=== PATIENT | female | born 1980 | race Caucasian/White ===

== ENCOUNTER 2019-11-06 23:05 | Emergency (ER) | payer OTHER, MEDICAID, SELFPAY ==
[2019-11-06 23:18] VITALS: BP 166/64; PULSE 52; RESP 14; TEMP 37.4; O2SAT 99; BMI 28.3
--- NOTE | 2019-11-06 23:41 | ED_ITS ---
HPI - General Adult General Chief complaint: Toxicology Problem Stated complaint: HEROIN WITHDRAWALS Time Seen by Provider: 11/06/19 23:16 Source: patient and family Mode of arrival: Wheelchair Limitations: no limitations History of Present Illness HPI narrative: Patient is a 39-year-old female. Unknown abuser of heroin. States her last use of heroin was 2 days ago. She is here with her . She states she is here for detox. She states that 2 days ago she decided that she wants a ?change of life ?and stopped using heroin. She states that prior to coming here they went to another emergency department however the wait was too long. They state that they contacted a detox facility who told them that they needed to come to the emergency department. Patient has multiple complaints to include pain, headache, nausea. Review of Systems Constitutional Constitutional: Reports fatigue, Reports headache(s) and Reports poor appetite ENT Ears, Nose, Mouth, and Throat: Denies dizziness, Reports headache(s) and Reports disequilibrium Cardiovascular Cardiovascular: Denies chest pain and Denies dyspnea Respiratory Respiratory: Denies dyspnea Gastrointestinal Gastrointestinal: Reports abdominal pain, Denies change in stool character and Reports nausea Musculoskeletal Musculoskeletal: Reports myalgias Integumentary/Breasts Skin/Breast: Denies lesions and Denies rash Neurologic Neurologic: Denies dizziness, Reports headache(s), Denies focal weakness and Reports disequilibrium Psychiatric Psychiatric: Reports anxiety and Reports difficulty concentrating Endocrine Endocrine: Reports fatigue Hematologic/Lymphatic Hematologic/Lymphatic: Denies easy bleeding and Denies easy bruising Allergic/Immunologic Allergic/Immunologic: Denies urticaria Patient History Medical History Heroin abuse (Acute) Social History Smoking Status: Current every day smoker Smoking Status: Current every day smoker alcohol intake frequency: 0-2 drinks per day Substance Use Type: heroin Exam Initial Vital Signs Initial Vital Signs: Vital Signs Temperature 99.4 F 11/06/19 23:18 Pulse Rate 52 L 11/06/19 23:18 Respiratory Rate 14 11/06/19 23:18 Blood Pressure 166/64 H 11/06/19 23:18 Pulse Oximetry 99 11/06/19 23:18 Const General: No acute distress and No ill appearing Orientation: alert, awake and oriented x3 HENMT Head: normal to inspection and normocephalic Resp Effort & Inspection: normal respiratory effort Cardio Rate: regular rate Skin Lesions: no lesions Rashes: no rashes Neuro General: alert, awake and oriented x3 Speech: speech normal Extrem General: capillary refill normal Psych Appearance: grossly normal Speech and Movement: agitated and restless Mood: angry Affect: irritable affect Attitude: other (Somewhat cooperative) Thought Content: suicidality Course Orders Ordered: ED Orders 11/06/19 23:30 Acetaminophen Stat Basic Metabolic Panel Stat Complete Blood Count AUTO DIFF Stat Ethanol (ETOH) Stat Salicylate Stat 11/07/19 01:05 Urine Drug Screen, Rapid Stat Discontinued Medications Clonidine HCl (Catapres-Tts 1) 0.1 mg TOP NOW ONE Stop: 11/06/19 23:42 Last Admin: 11/07/19 00:26 Dose: 0.1 mg Documented by: ADOLPH Ondansetron HCl (Zofran Odt) 4 mg SL NOW ONE Stop: 11/06/19 23:42 Last Admin: 11/06/19 23:58 Dose: 4 mg Documented by: ADOLPH Vital Signs Vital signs: Vital Signs - 8 hr 11/06/19 23:18 11/07/19 00:03 11/07/19 01:52 Temperature 99.4 F Pulse Rate 52 L 58 L 66 Respiratory Rate 14 36 H 28 H Blood Pressure 166/64 H Blood Pressure [Left Arm] 166/91 H 155/86 H Pulse Oximetry 99 99 98 11/07/19 02:00 Temperature Pulse Rate 66 Respiratory Rate 30 H Blood Pressure Blood Pressure [Left Arm] 154/88 H Pulse Oximetry 98 Medical Decision Making Lab Data Lab results reviewed: Yes I reviewed the patient's lab results. Result diagrams: 11/06/19 23:30 11/06/19 23:30 Labs: Lab Results 11/06/19 11/06/19 11/06/19 Range/Units 23:30 23:30 23:30 WBC 9.3 (4.5-11.0) X10^3/uL RBC 5.07 (4.0-5.2) X10^6/uL Hgb 14.6 (12.0-16.0) g/dL Hct 41.8 (36-46) % MCV 82.4 (80-100) fL MCH 28.7 (26-34) PG MCHC 34.9 (30-36) % RDW 13.9 (11.6-14.8) % Plt Count 247 (150-400) X10^3/uL Neut % (Auto) Not Reportable Lymph % (Auto) Not Reportable [place] % (Auto) Not Reportable Eos % (Auto) Not Reportable Baso % (Auto) Not Reportable Lymph # (Auto) Not Reportable [place] # (Auto) Not Reportable Baso # (Auto) Not Reportable Total Counted 100 Seg Neutrophils % 81.0 H (38-70) % Lymphocytes % (Manual) 16.0 L (25-45) % Monocytes % (Manual) 3.0 (2-11) % Neutrophils # (Manual) 7533 H (6002-5123) /uL RBC Morphology Normal morphology Sodium 141 (137-145) mmol/L Potassium 3.7 (3.4-5.1) mmol/L Chloride 109 H (98-107) mmol/L Carbon Dioxide 26 (22-32) mmol/L BUN 11 (7-17) mg/dL Creatinine 0.70 (0.52-1.04) mg/dL Estimated GFR > 60.0 (>60) mL/min BUN/Creatinine Ratio 15.7 (6-22) Glucose 102 H (70-100) mg/dL Calcium 9.0 (8.4-10.2) mg/dL Salicylates < 1.0 (<20) mg/dL U Morph 300 ng/mL cutoff (Negative) Ur Oxycodone Screen (Negative) Urine Methadone Screen (Negative) Acetaminophen < 10 L (10-30) ug/mL Ur Barbiturates Screen (Negative) U Tricyclic Antidepress (Negative) Ur Phencyclidine Scrn (Negative) Ur Amphetamines Screen (Negative) U Methamphetamines Scrn (Negative) Ur MDMA Scrn (Ecstasy) (Negative) U Benzodiazepines Scrn (Negative) Urine Cocaine Screen (Negative) U Marijuana (THC) Screen (Negative) Ethyl Alcohol < 10 ( - 10) mg/dL 11/07/19 Range/Units 01:05 WBC (4.5-11.0) X10^3/uL RBC (4.0-5.2) X10^6/uL Hgb (12.0-16.0) g/dL Hct (36-46) % MCV (80-100) fL MCH (26-34) PG MCHC (30-36) % RDW (11.6-14.8) % Plt Count (150-400) X10^3/uL Neut % (Auto) Lymph % (Auto) [place] % (Auto) Eos % (Auto) Baso % (Auto) Lymph # (Auto) [place] # (Auto) Baso # (Auto) Total Counted Seg Neutrophils % (38-70) % Lymphocytes % (Manual) (25-45) % Monocytes % (Manual) (2-11) % Neutrophils # (Manual) (9360-7784) /uL RBC Morphology Sodium (137-145) mmol/L Potassium (3.4-5.1) mmol/L Chloride (98-107) mmol/L Carbon Dioxide (22-32) mmol/L BUN (7-17) mg/dL Creatinine (0.52-1.04) mg/dL Estimated GFR (>60) mL/min BUN/Creatinine Ratio (6-22) Glucose (70-100) mg/dL Calcium (8.4-10.2) mg/dL Salicylates (<20) mg/dL U Morph 300 ng/mL cutoff Positive H (Negative) Ur Oxycodone Screen Positive H (Negative) Urine Methadone Screen Negative (Negative) Acetaminophen (10-30) ug/mL Ur Barbiturates Screen Negative (Negative) U Tricyclic Antidepress Negative (Negative) Ur Phencyclidine Scrn Negative (Negative) Ur Amphetamines Screen Negative (Negative) U Methamphetamines Scrn Positive H (Negative) Ur MDMA Scrn (Ecstasy) Negative (Negative) U Benzodiazepines Scrn Positive H (Negative) Urine Cocaine Screen Negative (Negative) U Marijuana (THC) Screen Positive H (Negative) Ethyl Alcohol ( - 10) mg/dL Point of Care Testing Test Results Negative Urine Dip Bedside Urine Glucose Negative Bedside Urine Bilirubin - Negative Bedside Urine Ketone + 15 Urine Specific [place] 1.020 Bedside Urine Occult Blood - Negative Bedside Urine pH 6.0 Bedside Urine Protein + 30 Bedside Urine Urobilinogen +/- 1mg Bedside Urine Nitrite - Negative Bedside Urine Leukocytes + 70 Esterase Point of care testing: Point of Care Testing Test Results Negative Urine Dip Bedside Urine Glucose Negative Bedside Urine Bilirubin - Negative Bedside Urine Ketone + 15 Urine Specific [place] 1.020 Bedside Urine Occult Blood - Negative Bedside Urine pH 6.0 Bedside Urine Protein + 30 Bedside Urine Urobilinogen +/- 1mg Bedside Urine Nitrite - Negative Bedside Urine Leukocytes + 70 Esterase MDM Narrative Medical decision making narrative: Patient was given Zofran and clonidine to help with her withdrawal symptoms. UDS positive for multiple substances. Patient is medically cleared. She is alert and oriented however somewhat agitated. Patient is stable for transport to detox facility when a bed is found. We contacted the [facility]. They stated because of her prescription medication that she needed to be accepted by either the physician or the nurse that will be on in the morning. They stated that they did have beds. We did discuss this with the patient. She asked for sleeping medication. I felt that given her current situation and her UDS that adding medications on top of this would be unwise. Patient stated that she would like to go home. Her was at bedside. I feel that she does have the capacity to make decisions. She was given information packets for multiple crisis and drug centers here in the area. We did clarify and told the patient that if in the morning the patient would like to call the [facility] directly to be admitted there that she is able to do this. She expressed understanding of this. She was instructed to remove the clonidine patch in 7 days. Discharge Plan Departure Patient Disposition: Home Clinical Impression: Opioid withdrawal Instructions: Opioid Use Disorder (Alternative Therapy) Activity Restrictions/Additional Instructions: I recommend that in the morning you contact the crisis center or 1 of the other centers that you were given information for this evening. Feel free to return to the emergency department at any point for new or worsening symptoms.
[2019-11-06 23:44] LABS: Add Manual Diff / Slide Review YES; Hematocrit 41.8 % (36-46); Hemoglobin 14.6 g/dL (12.0-16.0); Mean Corpuscular HGB Conc 34.9 % (30-36); Mean Corpuscular Hemoglobin 28.7 PG (26-34); Mean Corpuscular Volume 82.4 fL (80-100); Platelet Count 247 X10^3/uL (150-400); Red Blood Cell Count 5.07 X10^6/uL (4.0-5.2); Red Cell Distribution Width 13.9 % (11.6-14.8); White Blood Cell Count 9.3 X10^3/uL (4.5-11.0)
[2019-11-06 23:48] LABS: Salicylate < 1.0 mg/dL (<20)
[2019-11-06 23:49] LABS: Acetaminophen < 10 ug/mL (10-30); BUN Creatinine Ratio 15.7 (6-22); Blood Urea Nitrogen 11 mg/dL (7-17); Carbon Dioxide 26 mmol/L (22-32); Chloride 109 mmol/L (98-107); Estimated Glomerular Filt Rate > 60.0 mL/min (>60); Ethanol (ETOH) < 10 mg/dL; Glucose 102 mg/dL (70-100); HEMOLYSIS < 15 (0-50); Potassium 3.7 mmol/L (3.4-5.1); Sodium 141 mmol/L (137-145)
[2019-11-06] MEDS: ONDANSETRON 4 MG ODT SL (23:58)
[2019-11-07 00:03] VITALS: BP 166/91; PULSE 58; RESP 36; O2SAT 99
[2019-11-07] MEDS: cloNIDine TTS 0.1 MG PATCH TOP (00:26)
[2019-11-07 00:35] LABS: Neutrophils Absolute Manual 7533 /uL (3000-5900); Total Cells Counted 100
[2019-11-07 00:36] LABS: RBC Morphology Normal Morphology
[2019-11-07 01:16] LABS: UR Morphine/Opiate cutoff 300 Positive (Negative); Ur Creatinine 50 (Normal); Ur Specific Gravity 1.025 (Normal); Urine Amphetamines Negative (Negative); Urine Cocaine Negative (Negative); Urine Methamphetamines Positive (Negative); Urine Tetrahydrocannabinol Positive (Negative); Urine pH 5 (Normal)
[2019-11-07 01:17] LABS: Urine Barbiturates Negative (Negative); Urine Benzodiazepines Positive (Negative); Urine MDMA Negative (Negative); Urine Methadone Negative (Negative); Urine Oxycodone Positive (Negative); Urine Phencyclidine Negative (Negative); Urine Tricyclic Antidepressant Negative (Negative)
[2019-11-07 01:52] VITALS: BP 155/86; PULSE 66; RESP 28; O2SAT 98
[2019-11-07 02:00] VITALS: BP 154/88; PULSE 66; RESP 30; O2SAT 98
--- NOTE | 2019-11-07 02:31 | PC.NURSE ---
patient talking on the phone with [facility]. provider aware.
--- NOTE | 2019-11-07 03:20 | PC.NURSE ---
Patient spoke with [facility] ([facility]) and [facility] states that they have to do another intake process in the morning around 06:30 involving a nurse and clinician due to some of the medications that the patient takes. Patient agitated and wants to go home and call the [facility] in the morning. I called the [facility] and was told that the patient could go home and call in the morning when she is ready. Provider aware and no new orders at this time.
== END 2019-11-07 03:24 | disposition home or self-care (01) ==
PROVIDERS: Emergency Provider Emergency Medicine
DX: F11.23 Opioid dependence with withdrawal (principal)
CPT/HCPCS: 36415; 80048; 80305; 80320; 80329; 81003; 81025; 85025; 99282; 99283; G0480

== ENCOUNTER → 2020-07-02 08:51 | Outpatient (CLI) | payer OTHER, MEDICAID, SELFPAY ==
--- NOTE | 2020-07-02 | DI.RAD.S_ITS ---
PROCEDURE: XR FOOT RT MIN 3V INDICATIONS: Pain in unspecified joint TECHNIQUE: 3 views of the foot were acquired. COMPARISON: None. FINDINGS: Bones: No fractures or dislocations. No suspicious bony lesions. Mild posterior calcaneal spur. Soft tissues: No tibiotalar joint effusion. Achilles tendon appears normal. IMPRESSION: Minimal spurring at the posterior calcaneus. Otherwise, unremarkable examination as above. If the patient's pain or other symptoms persist, consider further evaluation with MRI Dictated by: Sarkis Peraza M.D. on 07/02/2020 at 10:58 Approved by: Sarkis Peraza M.D. on 07/02/2020 at 10:59
--- NOTE | 2020-07-02 | DI.RAD.S_ITS ---
PROCEDURE: XR FOOT LT MIN 3V INDICATIONS: Pain in unspecified joint TECHNIQUE: 3 views of the foot were acquired. COMPARISON: [facility], CR, XR FOOT RT MIN 3V, 07/02/2020, 8:03. FINDINGS: Bones: No fractures or dislocations. No suspicious bony lesions. Hindfoot and midfoot degenerative spurring. Prominent posterior calcaneal spur. Soft tissues: No tibiotalar joint effusion. Achilles tendon appears normal. IMPRESSION: Posterior calcaneal spur Dictated by: Sarkis Peraza M.D. on 07/02/2020 at 11:00 Approved by: Sarkis Peraza M.D. on 07/02/2020 at 11:02
--- NOTE | 2020-07-02 | DI.MRI.S_ITS ---
PROCEDURE: MR HUMERUS RT WO CON INDICATIONS: Pain in right upper arm TECHNIQUE: Noncontrast coronal and sagittal T1 spin echo and STIR; axial T1 spin echo and T2 fast spin echo with fat saturation through the right humerus . COMPARISON: None. FINDINGS: Image quality: Motion degraded examination. Bones: The visualized bone marrow demonstrates normal signal on all sequences. The overlying cortex appears intact. No fractures lines or intra-osseous lesions. Soft tissues: There is probable rotator cuff pathology however limited evaluation given exam protocol tailored for right humerus. Possible ganglion cyst seen in the region of the supraspinatus muscle image 26/6 measuring 1 cm. No soft tissue masses are present. IMPRESSION: No suspicious humeral marrow signal abnormalities. No fracture. There is right chest /abdominal wall subcutaneous edema , presumed contusion although nonspecific. Severely suboptimal evaluation due to motion artifact, and modality. If there is clinical suspicion for rib fracture consider dedicated rib series. Probable rotator cuff pathology as detailed above, however incomplete evaluation given exam protocol tailored for humerus. If there is sufficient clinical concern, dedicated shoulder MRI could be performed. Dictated by: Sarkis Peraza M.D. on 07/02/2020 at 11:08 Approved by: Sarkis Peraza M.D. on 07/02/2020 at 11:19
--- NOTE | 2020-07-02 | DI.RAD.S_ITS ---
PROCEDURE: XR HIP W PEL IF DONE LT MIN 4V INDICATIONS: Pain in unspecified joint TECHNIQUE: AP pelvis with lateral view(s) of the left and right hip(s). COMPARISON: None. FINDINGS: Bones: No fracture. Mild bilateral hip joint degeneration. Lower lumbar spondylosis and facet arthropathy. Soft tissues: The visualized bowel gas pattern is normal. No suspicious soft tissue calcifications. IMPRESSION: Mild bilateral hip joint degeneration. Lower lumbar spondylosis Dictated by: Sarkis Peraza M.D. on 07/02/2020 at 14:10 Approved by: Sarkis Peraza M.D. on 07/02/2020 at 14:11
--- NOTE | 2020-07-02 | DI.RAD.S_ITS ---
PROCEDURE: XR HAND LT MIN 3V INDICATIONS: Pain in unspecified joint TECHNIQUE: 3 views of the hand(s) acquired. COMPARISON: None. FINDINGS: Bones: No fractures or dislocations. Carpal bones are normally aligned. No suspicious bony lesions. Ulnar minus variance Soft tissues: No suspicious soft tissue calcifications. IMPRESSION: Ulnar minus variance Otherwise, unremarkable examination. If the patient's pain or other symptoms persist, consider further evaluation with MRI Dictated by: Sarkis Peraza M.D. on 07/02/2020 at 11:05 Approved by: Sarkis Peraza M.D. on 07/02/2020 at 11:06
--- NOTE | 2020-07-02 | DI.RAD.S_ITS ---
PROCEDURE: XR HAND RT MIN 3V INDICATIONS: Pain in unspecified joint TECHNIQUE: 3 views of the hand(s) acquired. COMPARISON: [facility], CR, XR HAND LT MIN 3V, 07/02/2020, 8:00. FINDINGS: Bones: No fracture. Ulnar minus variance and distal radial ulnar joint degeneration, suggestive of ulnar impingement syndrome. Soft tissues: No suspicious soft tissue calcifications. IMPRESSION: Degenerative changes at the distal radioulnar joint, and ulnar minus variance. Findings raise the possibility of ulnar impingement syndrome. Dictated by: Sarkis Peraza M.D. on 07/02/2020 at 11:06 Approved by: Sarkis Peraza M.D. on 07/02/2020 at 11:08
== END ==
PROVIDERS: PCP Family Medicine; Referring Provider Family Medicine; Visit Provider Family Medicine
DX: M79.621 Pain in right upper arm (principal); M16.0 Bilateral primary osteoarthritis of hip; M47.816 Spondylosis without myelopathy or radiculopathy, lumbar region; M25.50 Pain in unspecified joint; M77.32 Calcaneal spur, left foot; M77.31 Calcaneal spur, right foot; M21.832 Other specified acquired deformities of left forearm; M21.831 Other specified acquired deformities of right forearm; M19.041 Primary osteoarthritis, right hand
CPT/HCPCS: 73130; 73218; 73522; 73630

== ENCOUNTER → 2020-08-22 16:00 | Outpatient (CLI) | payer OTHER, MEDICAID, SELFPAY ==
--- NOTE | 2020-08-22 16:02 | DI.MRI.S_ITS ---
PROCEDURE: MR SHOULDER RT WO CON INDICATIONS: Right shoulder pain TECHNIQUE: Noncontrast oblique coronal T2 fast spin echo with fat saturation, oblique sagittal T1 spin echo and T2 fast spin echo with fat saturation, axial T1 spin echo and T2 fast spin echo with fat saturation through the shoulder. COMPARISON: None. FINDINGS: Image quality: There is mild motion artifact. Rotator cuff: There is tendinopathy of the superior cuff with moderate intrasubstance partial tearing at the insertion of the supraspinatus involving the posterior fibers as well as anterior fibers of the infraspinatus. No discrete full-thickness tear or tendon retraction. The subscapularis demonstrates mild tendinopathy with minimal partial tearing at its insertion. The teres minor appears intact. Sagittal images demonstrate no fatty muscle atrophy. Bones and bursae: There is mild bone marrow edema within the humeral head adjacent to the insertion of the superior cuff which may represent reactive changes or enthesitis. No definite bone marrow contusions or fractures. There is moderate acromioclavicular joint degeneration. The acromion demonstrates conventional anatomy, without an os acromiale. A small amount of subacromial-subdeltoid bursal fluid is present. Capsule and soft tissues: There is degenerative signal within the superior and posterosuperior labrum as well as the anteroinferior labrum. In the absence of intra-articular contrast, the glenohumeral ligaments appear intact. The long head of the biceps tendon demonstrates normal location and morphology. The rotator interval appears normal, without fibrosis. The coracohumeral ligament is normal in thickness. IMPRESSION: 1. Moderate interstitial partial tearing in the superior cuff at its insertion. No discrete full-thickness tear or tendon retraction. 2. Moderate acromioclavicular joint degeneration with mild subacromial/subdeltoid bursitis. 3. Mild bone marrow edema in the humeral head along the insertion of the superior cuff may represent reactive changes or an enthesitis. No discrete bony erosions. Dictated by: Erasto Schneider M.D. on 08/22/2020 at 18:19 Approved by: Erasto Schneider M.D. on 08/22/2020 at 18:25
--- NOTE | 2020-08-22 16:02 | DI.MRI.S_ITS ---
PROCEDURE: MR KNEE RT WO CON INDICATIONS: Right knee pain TECHNIQUE: Noncontrast sagittal PD fast spin echo and T2 fast spin echo with fat saturation, sagittal 3-D FLASH with fat saturation; coronal T1 spin echo and PD fast spin echo with fat saturation, and axial PD fast spin echo with fat saturation through the knee. COMPARISON: [facility], CR, XR KNEE ARTHRITIC SERIES BI, 06/03/2017, 16:02. FINDINGS: Image quality: Diagnostic. Menisci: There is moderate degenerative tearing of the lateral meniscus. This extends to the meniscal root ligaments without evidence of rupture. There is mild lateral extrusion. The medial meniscus is diminutive in size suggesting sequelae of prior partial meniscectomy. There is mild degenerative tearing of the remnant medial meniscus. Cruciate ligaments: The anterior cruciate ligament is attenuated in appearance consistent with sequelae of a prior moderate sprain. The posterior cruciate ligament is intact. Medial structures: The medial collateral ligament appears intact. The semimembranosus tendon insertions and meniscocapsular junction appear intact. Visualized portions of the pes anserinus tendons appear intact without associated bursal fluid collections. Lateral structures: The lateral collateral ligament, long and short heads of the biceps femoris tendon appear intact. The popliteus tendon appears intact. Iliotibial band appears intact. Anterior structures: The quadriceps and patellar tendons appear intact. There is mild lateral shift of the patella. No femoral trochlear dysplasia or ventral trochlear prominence. No edema in the infrapatellar fat pad. Bones and cartilage: No bone marrow contusions or fractures. No discrete bony erosions. There is tricompartmental osteophytosis. Moderate cartilage thinning is demonstrated in the patellofemoral compartment with superficial chondral fissuring. In the medial compartment, there is moderate cartilage thinning with chondral fissuring associated with mild subchondral edema. In the lateral compartment, there is moderate to severe cartilage thinning with chondral fissuring and subchondral edema. Joint space: There is a large joint effusion. No Reeder's cyst. Normal appearing synovial plicae are incidentally noted. IMPRESSION: 1. Large nonspecific joint effusion. No discrete bony erosions or bony destruction to suggest osteomyelitis or inflammatory arthropathy. Correlation is recommended clinically. 2. Tricompartmental moderate to severe osteoarthritic changes. 3. Moderate degenerative tearing of the lateral meniscus. 4. Diminutive appearance of the medial meniscus suggestive of a prior partial meniscectomy. There is mild degenerative tearing of the remnant meniscus. 5. Attenuated appearance of the ACL suggestive of prior moderate sprain. Dictated by: Erasto Schneider M.D. on 08/22/2020 at 18:04 Approved by: Erasto Schneider M.D. on 08/22/2020 at 18:18
== END ==
PROVIDERS: PCP Family Medicine; Referring Provider Family Medicine; Visit Provider Licensed Practical Nurse
DX: M25.561 Pain in right knee (principal); M25.511 Pain in right shoulder; M23.200 Derangement of unspecified lateral meniscus due to old tear or injury, right knee; M23.203 Derangement of unspecified medial meniscus due to old tear or injury, right knee; M17.11 Unilateral primary osteoarthritis, right knee; M25.461 Effusion, right knee; M75.111 Incomplete rotator cuff tear or rupture of right shoulder, not specified as traumatic; M19.011 Primary osteoarthritis, right shoulder
CPT/HCPCS: 73221; 73721

== ENCOUNTER → 2020-09-13 14:51 | Outpatient (CLI) | payer OTHER, MEDICAID, SELFPAY ==
--- NOTE | 2020-09-13 | DI.US.S_ITS ---
PROCEDURE: US PERIPH VENOUS LOW EXTREM BI INDICATIONS: EDEMA TECHNIQUE: Real-time imaging, as well as color and pulse Doppler interrogation, were performed of the deep veins of both legs from the inguinal ligament to the popliteal fossa. COMPARISON: None. FINDINGS: Right: The common femoral, femoral and popliteal veins are normally compressible, and free of intraluminal thrombus. Color and pulse Doppler demonstrate normal phasic intravascular flow. There is normal augmentation response to distal compression maneuver. Left: The common femoral, femoral and popliteal veins are normally compressible, and free of intraluminal thrombus. Color and pulse Doppler demonstrate normal phasic intravascular flow. There is normal augmentation response to distal compression maneuver. IMPRESSION: Negative for deep venous thrombosis. Dictated by: Juan José Pantoja M.D. on 09/13/2020 at 14:40 Approved by: Juan José Pantoja M.D. on 09/13/2020 at 14:40
== END ==
PROVIDERS: PCP Family Medicine; Referring Provider Orthopaedic Surgery; Visit Provider Family Medicine
DX: R60.9 Edema, unspecified (principal)
CPT/HCPCS: 93970

== ENCOUNTER → 2021-02-15 11:30 | Outpatient (CLI) | payer OTHER, MEDICAID, SELFPAY ==
--- NOTE | 2021-02-15 11:34 | DI.MRI.S_ITS ---
PROCEDURE: MR LUMBAR SPINE WO CON INDICATIONS: Other intervertebral disc degeneration, lumbosacra TECHNIQUE: Noncontrast sagittal T1 spin echo and T2 fast echo, sagittal STIR, axial T1 and T2 fast spin echo through the lumbar spine. In cases with scoliosis, additional coronal T2 fast spin echo may be performed. COMPARISON: None. FINDINGS: Image quality: Excellent. Alignment and Curvature: There is normal bony alignment. Bone Marrow: Marrow is of normal overall signal. No acute vertebral body compression fractures. Spinal Cord: Conus medullaris terminates at the L1 level. Visualized cord demonstrates normal signal and size. Paraspinous Soft Tissues: No paravertebral masses. T12-L1: Normal appearance. L1-L2: Normal appearance. L2-L3: Normal appearance. L3-L4: Normal appearance except for mild facet osteoarthritis symmetric bilaterally. L4-L5: Normal appearance except for mild to moderate facet osteoarthritis bilaterally causing slight narrowing of the neural foramen, symmetrically. L5-S1: Moderately severe degenerative disc disease with disc height reduction and disc desiccation, and also with slight retrolisthesis of L5 on S1. There is a disc bulge/protrusion at this level posteriorly centered at and to the left of midline, tapering into the neural foramen on the left, combining with bilateral facet osteoarthritis to produce asymmetric foraminal stenosis moderately severe on the left and moderate on the right. Spinal stenosis is not present and a disc herniation is not found. IMPRESSION: There is only a mild degree of symmetric facet osteoarthritis along the mid and lower lumbosacral spine until the L5-S1 level is reached where moderately severe degenerative disc disease and facet osteoarthritis is present. The pathology set degeneration and hyperostosis appears symmetric but the disc bulge/protrusion at and to the left of midline tapers into the neural foramen resulting in combined narrowing that is moderately severe on the left and moderate in severity on the right. Asymmetric impingement on the L5 nerve roots, left greater than right, appears present. No disc herniation seen. Dictated by: Jorje Valderrama M.D. on 02/17/2021 at 15:13 Approved by: Jorje Valderrama M.D. on 02/17/2021 at 15:23
== END ==
PROVIDERS: PCP Family Medicine; Referring Provider Orthopaedic Surgery; Visit Provider Family Medicine
DX: M51.37 Other intervertebral disc degeneration, lumbosacral region (principal); M47.817 Spondylosis without myelopathy or radiculopathy, lumbosacral region
CPT/HCPCS: 72148

== ENCOUNTER → 2021-05-20 09:26 | Outpatient (CLI) | payer OTHER, MEDICAID, SELFPAY ==
--- NOTE | 2021-05-20 | DI.RAD.S_ITS ---
PROCEDURE: XR FOOT RT MIN 3V INDICATIONS: Pain in unspecified ankle and joints of unspecified TECHNIQUE: 3 views of the foot were acquired. COMPARISON: [facility], CR, XR FOOT RT MIN 3V, 07/02/2020, 8:03. [facility], CR, XR FOOT LT MIN 3V, 07/02/2020, 8:05. FINDINGS: Bones: No fractures or dislocations. No suspicious bony lesions. Mild hallux valgus deformity is seen, with associated focal degenerative change of the 1st metatarsophalangeal joint. Milder degenerative changes are seen elsewhere. Toe alignment abnormalities are seen. The previously seen posterior calcaneal spurring is no longer definitely seen. Soft tissues: No tibiotalar joint effusion. Achilles tendon appears normal. IMPRESSION: Mild hallux valgus deformity and toe alignment abnormalities, without an acute abnormality seen. The previously seen posterior calcaneal spurring is no longer definitely seen. Dictated by: Juan José Pantoja M.D. on 05/20/2021 at 13:05 Approved by: Juan José Pantoja M.D. on 05/20/2021 at 13:06
== END ==
PROVIDERS: PCP Family Medicine; Referring Provider Family Medicine; Visit Provider Family Medicine
DX: M25.571 Pain in right ankle and joints of right foot (principal); M20.11 Hallux valgus (acquired), right foot
CPT/HCPCS: 73630

== ENCOUNTER → 2021-06-16 18:50 | Outpatient (CLI) | payer OTHER, MEDICAID, SELFPAY ==
--- NOTE | 2021-06-16 | DI.MRI.S_ITS ---
PROCEDURE: MR FOOT RT WO CON INDICATIONS: pain in right foot TECHNIQUE: Noncontrast sagittal T1 spin echo and T2 fast spin echo with fat saturation, long-axis T1 spin echo and T2 fast spin echo with fat saturation, short-axis T1 spin echo and T2 fast spin echo with fat saturation through the forefoot. COMPARISON: [facility], CR, XR FOOT RT MIN 3V, 05/20/2021, 9:30. FINDINGS: Image quality: Excellent. Bones and joints: There is mild metatarsus primus varus. Mild, presumably degenerative marrow edema within the 1st metatarsal head. Mild periarticular osteophyte formation at the 1st metatarsophalangeal joint. There is mild T2 signal elevation within the 1st and 2nd cuneiforms, adjacent to their articular interface, consistent with degenerative marrow edema. There is ill-defined linear low T1 signal intensity traversing the proximal 2nd metatarsal. There is moderate ill-defined T2 signal elevation within the proximal and mid portions of the 2nd, 3rd, and 4th metatarsals, without evidence of associated displaced fracture. There is moderate, presumably degenerative marrow edema adjacent to the 1st, 2nd, 3rd, and 4th tarsometatarsal joints. Soft tissues: The visualized plantar foot muscles demonstrate normal signal and bulk. Visualized flexor and extensor tendons appear intact, without tenosynovitis. The distal insertions of the peroneus brevis and longus tendons appear intact. The principal Lisfranc ligament appears intact. No soft tissue ganglion cysts or bursal fluid collections. There is moderate diffuse ill-defined T2 signal elevation within the dorsal subcutaneous tissues of the midfoot. Small amount of bursal fluid interposed between the 2nd and 3rd, 3rd and 4th, 4th and 5th metatarsal heads. Moderate 5th metatarsophalangeal joint effusion. IMPRESSION: 1. Stress fracture involving the proximal 2nd metatarsal. 2. Stress reaction within the 2nd, 3rd, and 4th metatarsals. 3. 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 4. Presumed degenerative marrow edema adjacent to the intertarsal as well as the tarsal metatarsal joints. 5. Intermetatarsal bursitis. Dictated by: Deepthi King M.D. on 06/17/2021 at 10:20 Approved by: Deepthi King M.D. on 06/17/2021 at 10:26
== END ==
PROVIDERS: PCP Family Medicine; Referring Provider Family Medicine; Visit Provider Family Medicine
DX: M25.571 Pain in right ankle and joints of right foot (principal); M84.374A Stress fracture, right foot, initial encounter for fracture; M19.071 Primary osteoarthritis, right ankle and foot; M77.51 Other enthesopathy of right foot and ankle
CPT/HCPCS: 73718

== ENCOUNTER 2025-05-30 02:54 | Emergency (ER) | payer OTHER, SELFPAY ==
[2025-05-30] VITALS (13 sets, daily range): BP systolic 151–203; BP diastolic 73–100; PULSE 73–93; RESP 17–20; TEMP 36.4–36.8; O2SAT 95–100; BMI 43.9
--- NOTE | 2025-05-30 03:49 | DI.CT.S_ITS ---
PROCEDURE: CT LE RT W CON INDICATIONS: swelling infection TECHNIQUE: After the administration of intravenous contrast, 2 mm axial sections acquired of the right lower leg, with coronal and sagittal reformats. For radiation dose reduction, the following was used: automated exposure control, adjustment of mA and/or kV according to patient size. COMPARISON: [facility], CR, XR KNEE ARTHRITIC SERIES BI, 04/10/2025, 14:27. FINDINGS: Image quality: Excellent. Bones: No acute osseous fracture or dislocation. Tricompartmental degenerative changes in the right knee with marginal osteophyte formation. Mild degenerative changes in the ankle and midfoot. Small posterior and plantar calcaneal enthesophytes. No osseous erosions. Soft tissues: Small knee effusion. Nonspecific subcutaneous edema throughout the lower leg extending into the ankle and foot. No soft tissue gas. No rim enhancing fluid collection. The visualized musculature is normal in bulk without intermuscular fascial edema. The articular cartilages, ligaments, tendons are not well evaluated with CT. IMPRESSION: Subcutaneous edema throughout the lower leg and foot is nonspecific but can be seen with cellulitis. No soft tissue gas or abscess. No signs of fasciitis or osteomyelitis. There is no significant discrepancy when compared to the overnight preliminary report. Approved by: Blayne Subramanian M.D. on 05/30/2025 at 8:27
--- NOTE | 2025-05-30 03:49 | DI.CT.S_ITS ---
PROCEDURE: CT LE LT W CON INDICATIONS: swelling infection TECHNIQUE: After the administration of intravenous contrast, 2 mm axial sections acquired of the left lower leg, with coronal and sagittal reformats. For radiation dose reduction, the following was used: automated exposure control, adjustment of mA and/or kV according to patient size. COMPARISON: [facility], CR, XR KNEE ARTHRITIC SERIES BI, 04/10/2025, 14:27. FINDINGS: Image quality: Excellent. Bones: No acute osseous fracture or dislocation. No osseous erosion. Tricompartmental degenerative changes in the knee with marginal osteophyte formation. Mild degenerative changes in the midfoot. Posterior and plantar calcaneal enthesophytes. No suspicious osseous lesion. Soft tissues: Small left knee effusion. Subcutaneous edema is seen throughout the lower leg extending into the ankle and foot. No soft tissue gas. No peripherally enhancing abscess. No intermuscular fascial edema. The visualized musculature is normal in bulk. The articular cartilages, ligaments, tendons are not well evaluated with CT. IMPRESSION: Subcutaneous edema throughout the lower leg is nonspecific but can be seen in setting of cellulitis. No soft tissue gas or abscess. No signs of fasciitis or osteomyelitis. There is no significant discrepancy when compared to the overnight preliminary report. Approved by: Blayne Subramanian M.D. on 05/30/2025 at 8:34
--- NOTE | 2025-05-30 03:53 | ED_ITS ---
HPI - Wound/Laceration General Chief Complaint: Wound/Laceration Stated Complaint: wound on rt leg thats not healing Time Seen by Provider: 05/30/25 03:06 Source: patient Mode of arrival: Ambulatory History of Present Illness HPI narrative: 44-year-old female history of hypertension presents with bilateral lower leg infection with drainage for the past few days after bumping into a laundry basket and started to scratch at it is since it was itchy. Patient has not done anything for it. Denies diabetes, fever, chills, chest pain, shortness of breath, history of MRSA, or previous leg infections. Other than what is stated 14 point review of system is negative. Related Data Previous Rx's ?Medication ?Instructions ?Recorded cephalexin 500 mg capsule 500 mg PO Q6H 7 days #28 cap s 05/30/25 sulfamethoxazole 800 1 tab PO Q12H #14 tabs 05/30 mg-trimethoprim 160 mg tablet (Bactrim DS) Allergies Allergy/AdvReac Type Severity Reaction Status Date / Time Penicillins Allergy Unknown Verified 05/30/25 02:59 Review of Systems Review of Systems ROS Unobtainable: All systems reviewed & are unremarkable except as noted in HPI and below Patient History Medical History (Updated 05/30/25 @ 05:55 by Zaeher Vazquez DO) Heroin abuse Social History Smoking Status: Current every day smoker Smoking Status: Current every day smoker alcohol intake frequency: 0-2 drinks per day Exam Narrative Exam Narrative: GENERAL: [44] year old patient appears stated age. Well-developed patient, in mild distress. HEAD: Atraumatic. Normocephalic. EYES: Pupils equal round and reactive. Extraocular motions intact. No scleral icterus. No injection or drainage. ENT: Nose without bleeding, purulent drainage. Throat without erythema, tonsillar hypertrophy or exudate. Airway patent. NECK: Trachea midline. Non tender CARDIOVASCULAR: Regular rate and rhythm without murmurs, gallops, or rubs. RESPIRATORY: Clear to auscultation. Breath sounds equal bilaterally. No wheezes, rales, or rhonchi. GASTROINTESTINAL: Abdomen soft, non-tender, nondistended. EXTREMITIES: RLE medial distal 1/3 circular infection 2x1cm yellow drainage and LLE medial distal 1/3 yellow drainage 1x1cm BACK: Nontender without deformity or crepitance. No flank tenderness. NEURO: AOx3. SKIN: No rash or erythema of visible areas Initial Vital Signs Initial Vital Signs: Vital Signs Temperature 97.6 F 05/30/25 02:59 Pulse Rate 86 05/30/25 02:59 Respiratory Rate 18 05/30/25 02:59 Blood Pressure 203/100 H 05/30/25 02:59 Pulse Oximetry 100 05/30/25 02:59 Oxygen Delivery Method Room Air 05/30/25 02:59 Course Orders Ordered: ED Orders 05/30/25 03:47 Blood Culture Stat CBC Auto Diff [Complete Blood Count AUTO DIFF] Stat CMP [Comprehensive Metabolic Panel] Stat Lactate (Lactic Acid) Stat 05/30/25 03:49 CT LE LT w con Stat CT LE RT w con Stat 05/30/25 04:35 Wound Culture and Gram Stain Stat Wound Culture and Gram Stain Stat Discontinued Medications Ceftriaxone Sodium 1,000 mg/ (Sodium Chloride) 100 mls @ 200 mls/hr IV NOW ONE Stop: 05/30/25 03:48 Last Infusion: 05/30/25 05:19 Dose: Infused Lactated Ringer's (Lactated Ringers) 1,000 mls @ 1,000 mls/hr IV BOLUS ONE Stop: 05/30/25 04:46 Last Admin: 05/30/25 05:24 Dose: 1,000 mls/hr Vancomycin HCl/Dextrose (Vancomycin) 2,000 mg in 400 mls @ 200 mls/hr IV NOW ONE Stop: 05/30/25 06:29 Last Admin: 05/30/25 05:23 Dose: 200 mls/hr Ketorolac Tromethamine (Ketorolac 30 Mg/Ml Vial) 30 mg IV NOW ONE Stop: 05/30/25 03:59 Last Admin: 05/30/25 04:06 Dose: 30 mg Vital Signs Vital signs: Vital Signs - 8 hr 05/30/25 02:59 05/30/25 03:30 05/30/25 03:30 Temperature 97.6 F Pulse Rate 86 91 H Respiratory Rate 18 20 Blood Pressure 203/100 H 188/91 H Pulse Oximetry 100 99 Oxygen Delivery Method Room Air Room Air 05/30/25 04:00 05/30/25 04:01 05/30/25 04:01 Temperature Pulse Rate 91 H 93 H Respiratory Rate Blood Pressure 153/79 H Pulse Oximetry 100 99 Oxygen Delivery Method Room Air 05/30/25 04:30 05/30/25 04:30 05/30/25 05:06 Temperature Pulse Rate 75 82 Respiratory Rate 19 Blood Pressure 184/93 H Pulse Oximetry 98 99 Oxygen Delivery Method Room Air 05/30/25 05:07 05/30/25 05:07 05/30/25 05:30 Temperature Pulse Rate 84 83 Respiratory Rate 18 Blood Pressure 160/76 H Pulse Oximetry 98 96 Oxygen Delivery Method Room Air 05/30/25 05:31 05/30/25 05:31 05/30/25 06:00 Temperature Pulse Rate 88 Respiratory Rate 18 Blood Pressure 151/73 H 164/77 H Pulse Oximetry 95 Oxygen Delivery Method Room Air 05/30/25 06:00 05/30/25 06:30 05/30/25 06:30 Temperature Pulse Rate 85 86 Respiratory Rate 17 17 Blood Pressure 170/87 H Pulse Oximetry 97 97 Oxygen Delivery Method Room Air MDM - Wound/Laceration Lab Data 05/30/25 04:10 05/30/25 04:10 Labs: Lab Results 05/30/25 Range/Units 04:10 WBC 6.7 (4.5-11.0) X10^3/uL RBC 5.28 H (4.0-5.2) X10^6/uL Hgb 14.2 (12.0-16.0) g/dL Hct 41.8 (36-46) % MCV 79.2 L (80-100) fL MCH 26.8 (26-34) PG MCHC 33.9 (30-36) % RDW 15.5 H (11.6-14.8) % Plt Count 254 (150-400) X10^3/uL Neut % (Auto) 74.5 (50-75) % Lymph % (Auto) 18.6 L (25-40) % [place] % (Auto) 5.1 (3-14) % Eos % (Auto) 0.3 L (2-4) % Baso % (Auto) 1.5 (0-2) % Neut # (Auto) 5000 (3075-2573) /uL Lymph # (Auto) 1200 (1673-0152) /uL [place] # (Auto) 300 (0-900) /uL Eos # (Auto) 0 (0-450) /uL Baso # (Auto) 100 (0-100) /uL Sodium 135 L (137-145) mmol/L Potassium 4.0 (3.4-5.1) mmol/L Chloride 101 (98-107) mmol/L Carbon Dioxide 30 (22-32) mmol/L BUN 15 (7-17) mg/dL Creatinine 0.93 (0.52-1.04) mg/dL Estimated GFR > 60 (>60) mL/min BUN/Creatinine Ratio 16.1 (6-22) Glucose 103 H (70-99) mg/dL Lactate 1.2 (0.7-2.1) mmol/L Calcium 8.5 (8.4-10.2) mg/dL Total Bilirubin 0.8 (0.2-1.3) mg/dL AST 25 (14-36) IU/L ALT 20 (<35) IU/L Alkaline Phosphatase 109 (38-126) U/L Total Protein 6.9 (6.3-8.2) g/dL Albumin 3.9 (3.5-5.0) g/dL Globulin 3.0 (1.7-4.1) g/dL Albumin/Globulin Ratio 1.3 (1.0-2.8) Imaging Data Extremity x-ray #1: Radiologist's Impression: CT scan lower extremity showed subcutaneous edema about the knee and leg no organized fluid collection seen and small joint effusion of the right and left lower extremity. MDM Narrative Medical decision making narrative: All lab work, vital signs, nurse triage note, medication list, previous ER visits and all imaging studies reviewed. Patient given vancomycin Rocephin, blood cultures and wound cultures obtained. White count normal lactic acid 1.2. Differential diagnosis includes cellulitis MRSA osteomyelitis abscess. CT scan showed subcutaneous edema no organized fluid collection seen and small joint effusion. Will send patient home on Bactrim and cephalexin and to follow up with PCP in 1-2 weeks for re-evaluation. Discharge Plan Departure Patient Disposition: Home Clinical Impression: Cellulitis Qualifiers: Site of cellulitis: extremity Site of cellulitis of extremity: lower extremity Laterality: left Qualified Code(s): L03.116 - Cellulitis of left lower limb Instructions: DI for Cellulitis -- Adult Activity Restrictions/Additional Instructions: Return with new or worsening symptoms. Take your medicines directed. Follow up with PCP in 1-2 weeks for wound recheck. Prescriptions: New cephalexin 500 mg capsule 500 mg PO Q6H 7 Days Qty: 28 0RF sulfamethoxazole-trimethoprim [Bactrim DS] 800-160 mg tablet 1 tab PO Q12H Qty: 14 0RF Referrals: Umair Guadalupe MD [Primary Care Provider, [facility]] Stand Alone Forms: Patient Portal/API
[2025-05-30] MEDS: KETOROLAC 30 MG/ML VIAL IV (04:06)
[2025-05-30 04:34] LABS: Add Manual Diff / Slide Review NO; Hematocrit 41.8 % (36-46); Hemoglobin 14.2 g/dL (12.0-16.0); Lymphocytes Absolute Auto 1200 /uL (1100-4500); Mean Corpuscular HGB Conc 33.9 % (30-36); Mean Corpuscular Hemoglobin 26.8 PG (26-34); Mean Corpuscular Volume 79.2 fL (80-100); Platelet Count 254 X10^3/uL (150-400)
[2025-05-30 04:48] LABS: Lactate (Lactic Acid) 1.2 mmol/L (0.7-2.1)
[2025-05-30 04:49] LABS: Alanine Aminotransferase 20 IU/L (<35); Albumin 3.9 g/dL (3.5-5.0); Albumin Globulin Ratio 1.3 (1.0-2.8); Alkaline Phosphatase 109 U/L (38-126); Blood Urea Nitrogen 15 mg/dL (7-17); Calcium 8.5 mg/dL (8.4-10.2); Carbon Dioxide 30 mmol/L (22-32); Chloride 101 mmol/L (98-107); Estimated Glomerular Filt Rate > 60 mL/min (>60); Globulin 3.0 g/dL (1.7-4.1); Glucose 103 mg/dL (70-99); HEMOLYSIS 38 (0-50); Potassium 4.0 mmol/L (3.4-5.1); Sodium 135 mmol/L (137-145); Total Protein 6.9 g/dL (6.3-8.2)
[2025-05-30] MEDS: VANCOMYCIN 2,000 MG/400 ML PIGGYBACK 200 MG IV (05:23)
[2025-05-30] MEDS: LACTATED RINGERS 1,000 ML 1000 ML IV (05:24)
== END 2025-05-30 07:33 | disposition home or self-care (01) ==
PROVIDERS: Emergency Provider Family Medicine; PCP Family Medicine
DX: L03.116 Cellulitis of left lower limb (principal); L03.115 Cellulitis of right lower limb
CPT/HCPCS: 36415; 73701; 80053; 83605; 85025; 87040; 87070; 87077; 87147; 87186; 87205; 96365; 96366; 96367; 96375; 99284; J0696; J1885; J3375; Q9967